=== PATIENT | female | born 1980 | race Caucasian/White ===

== ENCOUNTER → 2019-06-08 | Outpatient (CLI) | payer OTHER ==
[~2019-06-08] MED LIST: BACTRIM DS 8001 TAB PO; BIRTH CONTROL PO; GLUCOPHAGE500 MG/TAB PO; PRENATAL1 TA1 PO
== END ==
LOC: COL.RAD 12:31
DX: R50.82 Postprocedural fever (principal); R10.2 Pelvic and perineal pain; Z90.710 Acquired absence of both cervix and uterus
CPT/HCPCS: Q9967

== ENCOUNTER 2019-06-09 07:11 | Inpatient (IN) | payer OTHER ==
[2019-06-09] VITALS (18 sets, daily range): BP systolic 118–163; BP diastolic 66–87; PULSE 77–107; TEMP 97.6–98.7
[~2019-06-09] VITALS: Ht 162.6 cm; Wt 99.2 kg
[2019-06-09 07:42] LABS: COLLECTION METHOD CLEAN CATCH
[2019-06-09 07:45] LABS: HEMOGLOBIN 10.4 g/dl (12.5-16.0); MEAN CELL VOLUME 90 fl (80.0-100.0); MEAN CORPUSCULAR HEMOGLOBIN 29 pg (27.0-31.0); MEAN CORPUSCULAR HGB CONC 33 g/dl (33.0-37.0); MEAN PLATELET VOLUME 8.5 fl (7.4-10.4); PLATELET COUNT 436 K/mm3 (130-400); RED BLOOD COUNT 3.54 M/mm3 (4.10-5.30)
[2019-06-09 07:48] LABS: HEMATOCRIT 31.7 % (37.0-47.0)
[2019-06-09 07:54] LABS: ALBUMIN 4.1 gm/dL (3.5-5.0); BILIRUBIN,TOTAL 0.5 mg/dL (0.0-1.0); CALCIUM 9.3 mg/dL (8.4-10.2); CREATININE, serum 0.79 (0.52-1.25); POTASSIUM 3.7 mmol/L (3.4-5.0); TOTAL PROTEIN 8.2 gm/dL (6.4-8.2)
[2019-06-09 08:00] LABS: MUCOUS Present /lpf; PH 5 (5-8); URINE APPEARANCE Cloudy; URINE BACTERIA None Seen /hpf; URINE BILIRUBIN Negative (NEGATIVE); URINE BLOOD 1+ (NEGATIVE); URINE COLOR Amber; URINE GLUCOSE Negative (NEGATIVE); URINE KETONE 1+ (NEGATIVE); URINE LEUKOCYTE ESTERASE 2+ (NEGATIVE); URINE NITRATE Negative (NEGATIVE); URINE PROTEIN(semi-quant) 2+ (NEGATIVE); URINE UROBILINOGEN >=4.0 mg/dL (NEGATIVE)
--- NOTE | 2019-06-09 08:15 | NUR ---
Pt to ct per ambulation. Rates pain to abdomen at 6/10. Pt to bathroom to drain bladder prior to procedure. Monitors applied and O2 on. Pt in supine position on ct table. Dr Goldsmith into room.
--- NOTE | 2019-06-09 08:39 | NUR ---
Drain in place. Dr Goldsmith drained 220 mls of bloody drainage from pelvic abscess. Specimen labeled.
--- NOTE | 2019-06-09 09:39 | NUR ---
Pt up to room 317 from procedure. Pt on post op vitals at this time. Pt VSS, requesting tylenol. Physician contacted for order. No other concerns at this time. Call light within reach and family at bedside.
--- NOTE | 2019-06-09 10:59 | NUR ---
Pt VSS. Pt administered PRN tylenol per NOV. IVF ordered. More CHILD to see pt to find new IV site. Attempts at IV sites for procedure this morning were difficult. Pt to receive IVF and antibiotics. Pt voices no other concerns at this time. Call light within reach. Meds, allergies and pharmacy reviewed with patient.
--- NOTE | 2019-06-09 17:19 | NUR ---
Pt sitting in bed, denies pain. Drain site is CDI. 100ml bloody drainage in bag at this time. Will empty at shift change. VSS. Call light within reach. No other concerns voiced at this time.
--- NOTE | 2019-06-09 18:20 | NUR ---
Pt drain emptied, 75 ml removed from bag, bloody drainage. Pt denies pain or other concerns at this time.
[2019-06-10 00:07] VITALS: BP 116/51; PULSE 83; TEMP 98.8
[2019-06-10 04:15] VITALS: BP 110/48; PULSE 76; TEMP 98.3
[2019-06-10 08:13] VITALS: BP 131/76; PULSE 75; TEMP 98
--- NOTE | 2019-06-10 08:16 | NUR ---
Pt assessment complete and charted. Pt states she is doing well this morning, denies pain. Drain site is CDI, per pt some "tenderness" but no pain. Drain has minimal bloody drainage present. Per power and recovery shift engineer, did not accumulate enough drainage to empty bag. No other concerns voiced at this time. Call light within reach.
--- NOTE | 2019-06-10 11:26 | NUR ---
Pt discharge instructions discussed and reviewed with patient. Per pt, she is aware of follow up appointments and schedule/appointment for drain to be removed. Education on caring for drain discussed with patient who verbalized understanding. Per pt, new antibiotic sent to pharmacy. Physician put in DC orders and continued old antibiotic. Pt aware to NOT take old antibiotic and to molded goods spot picker new prescription. This nurse phoned physician who stated new antibiotic was sent to pharmacy. INT RAC IV dc'd with catheter tip intact and no complications. No other concerns voiced. Pt ambulated out with .
== END 2019-06-10 11:00 | disposition home or self-care (01) | DRG 921 ==
LOC: COL.RAD 07:11 → MEDICAL 09:20 → COL.RAD 06-10 08:59 → MEDICAL 06-10 09:00
PROVIDERS: ADMIT Student in an Organized Health Care Education/Training Program
PROC: 0W9H30Z Drainage of Retroperitoneum with Drainage Device, Percutaneous Approach (ICD-10-PCS; principal; 2019-06-10)
DX: L76.32 Postprocedural hematoma of skin and subcutaneous tissue following other procedure (principal); Y83.8 Other surgical procedures as the cause of abnormal reaction of the patient, or of later complication, without mention of misadventure at the time of the procedure; E88.81 Metabolic syndrome and other insulin resistance; G43.909 Migraine, unspecified, not intractable, without status migrainosus; Z87.440 Personal history of urinary (tract) infections; Z90.710 Acquired absence of both cervix and uterus
CPT/HCPCS: OP; C1729; J2250; J2543; J3010; J7030

== ENCOUNTER → 2019-06-13 | Outpatient (CLI) | payer OTHER | LOC: COL.RAD 09:17 | DX: K65.1 Peritoneal abscess (principal) | CPT/HCPCS: Q9967 ==

== ENCOUNTER → 2019-06-27 | Outpatient (CLI) | payer OTHER | LOC: COL.RAD 07:28 | DX: T81.89XA Other complications of procedures, not elsewhere classified, initial encounter (principal); Z90.710 Acquired absence of both cervix and uterus ==

== ENCOUNTER 2019-07-01 05:19 | Day surgery (SDC) | payer OTHER ==
[~2019-07-01] VITALS: Ht 162.6 cm; Wt 101.8 kg
[2019-07-01] VITALS (11 sets, daily range): BP systolic 123–158; BP diastolic 64–84; PULSE 66–91; TEMP 97.6–98.3
--- NOTE | 2019-07-01 11:30 | NUR ---
PATIENT ARRIVED TO ROOM 342 VIA BED FROM PACU. PATIENT IS DROWSY FROM SURGERY BUT AROUSES EASILY TO NAME. PATIENT IS A&OX4. POST-OP VSS. BOWEL SOUNDS HYPOACTIVE ALL FOUR QUADRANTS. PATIENT DENIES N/V OR PAIN. ABDOMINAL LAP SITES X5 LINE PULLER WITH EDGES WELL APPROXIMATED. POSITIVE PEDAL PULSES EQUAL BILATERALLY. SCD'S TO BLE. IV FLUIDS INFUSING TO RIGHT HAND IV VIA GRAVITY FLOW TUBING. CALL LIGHT WITHIN REACH. PRESENT AT THE BEDSIDE. PATIENT DENIES ANY NEEDS AT THIS TIME.
--- NOTE | 2019-07-01 19:00 | NUR ---
REPORT GIVEN TO AMANDEEP CORONA.
--- NOTE | 2019-07-01 19:12 | NUR ---
Report received from AMANDEEP Car
--- NOTE | 2019-07-01 19:39 | NUR ---
Resting in bed. Assessment complete. Lungs clear. Heart sounds normal. Bowels hypoactive. Reports "a little nausea." x5 lap sites open to air, CDI. Reports 4/10 ABD pain. Tylenol provided. Pitts to dependent drainage-clear yellow urine. Denies other needs at this time. Call light in reach.
--- NOTE | 2019-07-01 23:51 | NUR ---
Resting in bed. Reports 2/10 pain at this time. Provided with scheduled tylenol. Denies other needs at this time. Call light in reach.
[2019-07-02 00:08] VITALS: BP 127/64; PULSE 81; TEMP 98.2
[2019-07-02 04:17] VITALS: BP 129/64; PULSE 83; TEMP 98.3
--- NOTE | 2019-07-02 04:23 | NUR ---
Reports 5/10 pain in ABD at this time. Patient reports unable to take tramadol due to adverse reaction on vomiting. Added to patient MAR. Provided with PRN oxycodone at this time.
--- NOTE | 2019-07-02 06:36 | NUR ---
Patient required tylenol and x1 dose of oxycodone throughout night. Patient reports tramadol and torodol cause vomiting. Resting in bed this AM. Denies needs. Call light in reach.
--- NOTE | 2019-07-02 07:03 | NUR ---
Report given to AMANDEEP Car
--- NOTE | 2019-07-02 08:00 | NUR ---
UPON ENTRY TO THE ROOM THE PATIENT IS SITTING UP IN BED. PATIENT IS A&OX4. VSS. BOWEL SOUNDS HYPOACTIVE ALL FOUR QUADRANTS. PATIENT TOLERATING DIET WITHOUT ANY COMPLAINTS OF N/V. ABDOMINAL LAP SITES X5 CLERK CHECKER WITH EDGES WELL APPROXIMATED. POSITIVE PEDAL PULSES EQUAL BILATERALLY. SCD'S TO BLE. IV FLUIDS INFUSING TO RIGHT HAND IV. MITTAL CATHETER TO DEPENDENT DRAINAGE WITH CLEAR YELLOW URINE PRESENT IN MITTAL BAG. CALL LIGHT WITHIN REACH. PATIENT DENIES ANY NEEDS AT THIS TIME.
[2019-07-02 08:01] VITALS: BP 135/73; PULSE 80; TEMP 98
--- NOTE | 2019-07-02 12:28 | NUR ---
stopped by and visited briefly. Nothing else needed at this time.
[2019-07-02 12:42] VITALS: BP 138/65; PULSE 72; TEMP 98.3
--- NOTE | 2019-07-02 13:00 | NUR ---
PATIENTS RIGHT HAND INT DISCONTINUED PER PENDING DISCHARGE. TIP INTACT. PATIENT TOLERATED WELL. MITTAL CATHETER CHANGED TO LEG BAG FOR DISCHARGE. MITTAL CATHETER CARE REVIEWED WITH PATIENT AND . ALL QUESTIONS ANSWERED. PATIENT PERSONAL BELONGINGS GATHERED.
--- NOTE | 2019-07-02 13:40 | NUR ---
PATIENT AMBULATED TO PERSONAL VEHICLE WITH SURGICAL STAFF. PATIENT DISCHARGED.
--- NOTE | 2019-07-02 14:04 | NUR ---
Plan: To return home with Mason Law([phone]), who is also her emergency contact. Patient reported that she did not currently have a DPOA and declined one at this time. They reside in [place]. Assess: SW met with patient and was present. Patient did give permission to discuss information in front of . Patient denied the use of any DME , and she reported that her PCP is Dr. Tovar, and Dr Nixon. PAtient reported that she does not have any follow up appointments. She reported that she received her medications from the [facility] in [place], with no complications. Patient denied having any health concerns at this time, and she declined HHS. Action: No additional concerns notified. Patient was educated on community resources and supports.
== END 2019-07-02 13:40 | disposition home or self-care (01) ==
LOC: SDCO 05:19 → SURG 11:30 → SDCO 07-02 13:40
DX: N83.02 Follicular cyst of left ovary (principal); N83.12 Corpus luteum cyst of left ovary; N83.8 Other noninflammatory disorders of ovary, fallopian tube and broad ligament; S37.23XA Laceration of bladder, initial encounter; N99.72 Accidental puncture and laceration of a genitourinary system organ or structure during other procedure; Q50.4 Embryonic cyst of fallopian tube; Z90.710 Acquired absence of both cervix and uterus; I10 Essential (primary) hypertension; G43.909 Migraine, unspecified, not intractable, without status migrainosus; Z87.891 Personal history of nicotine dependence; Z80.3 Family history of malignant neoplasm of breast; Z82.3 Family history of stroke; Z83.3 Family history of diabetes mellitus; Z82.49 Family history of ischemic heart disease and other diseases of the circulatory system; Z80.8 Family history of malignant neoplasm of other organs or systems; Z88.8 Allergy status to other drugs, medicaments and biological substances; D64.9 Anemia, unspecified; F41.9 Anxiety disorder, unspecified
CPT/HCPCS: OP; A4314; C1769; J0690; J1100; J1885; J2405; J2704; J2710; J3010; J7120

== ENCOUNTER → 2019-07-15 | Outpatient (CLI) | payer OTHER | LOC: COL.RAD 08:49 | DX: N99.72 Accidental puncture and laceration of a genitourinary system organ or structure during other procedure (principal); Z98.890 Other specified postprocedural states ==